=== PATIENT | male | born 1950 | race Caucasian/White ===

== ENCOUNTER → 2018-12-04 | Outpatient (CLI) | payer OTHER ==
[~2018-12-04] MED LIST: IOHEXOL 350 MG/ML 100 ML VIAL. IV ONE
--- NOTE | 2018-12-04 14:29 | RAD ---
CTA OF THE CHEST WITH AND WITHOUT CONTRAST Clinical indications: Shortness of air. Tachycardia. Elevated d-dimer. Technique: Noncontrast axial localizer was performed. After IV infusion of 100 cc of Omnipaque 350, helical CT scanning of the chest was performed using the CT pulmonary embolism protocol. A coronal MIP reconstruction was generated. PQRS compliance Statement One or more of the following individualized dose reduction techniques were utilized for this study: 1. Automated exposure control 2. Adjustment of the mA and/or kV according to patient size 3. Use of iterative reconstruction technique Comparison: None available. Findings: No pulmonary embolism is evident. No focal aneurysmal dilatation or dissection of the thoracic aorta is seen. 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 Calcified lymph nodes are seen within mediastinum. Otherwise no enlarged thoracic lymphadenopathy is seen. The heart size is within normal limits and no pericardial effusion is seen. Adrenal glands are not completely seen in this study. There is diffuse fatty atrophy of the liver. Calcified granulomas of the left lower lobe are seen. Calcified granuloma of the lateral aspect of the right middle lobe is seen. No lung mass or lung consolidation is evident. No pleural effusion or pneumothorax is seen. The proximal bronchial tree is patent. Old healed left rib cage fractures are evident. There is a mild compression deformity of T6 vertebral body. No lytic process is seen. IMPRESSION: No pulmonary embolism. No acute lung infiltrate. Mild compression deformity of T6 vertebral body of indeterminate age. Fatty infiltration of the liver. Electronically signed by: Farhat Javed MD (12/04/2018 2:26 PM) [id number]
== END | disposition home or self-care (01) ==
LOC: CT 13:29
PROVIDERS: ATTEND Internal Medicine
DX: M43.8X4 Other specified deforming dorsopathies, thoracic region (principal); K76.0 Fatty (change of) liver, not elsewhere classified; J84.10 Pulmonary fibrosis, unspecified; K72.90 Hepatic failure, unspecified without coma; I77.810 Thoracic aortic ectasia; I10 Essential (primary) hypertension; Z87.891 Personal history of nicotine dependence
CPT/HCPCS: 71275; Q9967